=== PATIENT | male | born 1945 | race Caucasian/White ===

== ENCOUNTER 2016-11-25 10:33 | Day surgery (SDC) | payer OTHER ==
[2016-11-25] MEDS ORDERED: LR 1,000 ML IV ONE (11:20)
[2016-11-25] MEDS ORDERED: PROPOFOL 200 MG/20 ML VIAL ONE ×2 (11:59→12:35)
[2016-11-25] MEDS ORDERED: MIDAZOLAM 2 MG/2 ML VIAL ONE (12:14)
--- NOTE | 2016-11-30 14:32 | GPN ---
[f rep st] PROCEDURE NOTE DATE OF PROCEDURE: 11/25/2016 PROCEDURE: Colonoscopy with cold snare polypectomy. INDICATIONS: Personal history of colon polyps. PREOPERATIVE DIAGNOSIS: Rule out colon polyps, rule out colon cancer. POSTOPERATIVE DIAGNOSIS: Six polyps removed in total. There was a cecal polyp removed, 3 polyps in the hepatic flexure, 1 polyp in the transverse colon, and 1 polyp in the sigmoid colon. INFORMED CONSENT: I had a detailed discussion with the patient regarding the procedure, alternatives , benefits, and risks, including bleeding, perforation, infection, risk of medication. Informed cons ent was signed and witnessed. COMPLICATIONS: None immediate. MEDICATIONS USED: MAC. DESCRIPTION OF PROCEDURE: The patient was placed in the left lateral decubitus position. After adeq uate sedation, a visual and digital anorectal examination was performed. The video colonoscope was i nserted via the rectum and advanced under direct visualization to the cecum, identified by the ileoce zoey valve, confluence of the taeniae, and the appendiceal orifice. There was a 9 mm sessile polyp in the cecum that was removed in total by cold snare. Upon withdrawal of the instrument, careful atten tion was paid to the mucosal detail. The prep was very good. There were additional polyps noted in the hepatic flexure, 3 of them measuring between 5 mm and 8 mm, all of them removed with cold snare. An additional polyp in the transverse colon measuring approximately 3 mm was removed by cold snare. An additional polyp in the sigmoid colon measuring 4 mm was removed in total by cold snare. The pat ient did also have left-sided diverticulosis. Retroflex examination was performed. The endoscope wa s unretroflexed and withdrawn, confirming the above findings. The patient tolerated the procedure, a nd was transferred to the recovery area in satisfactory condition. IMPRESSIONS: 1. Six polyps as noted above, removed in total by cold snare. 2. Left-sided diverticulosis. 3. Otherwise normal exam. RECOMMENDATIONS: 1. Follow up pathology of all polyps. 2. Repeat colonoscopy in 3 years pending pathology. 3. High-fiber, high fluid diet. There is no need to avoid seeds and nuts with diverticulosis. 4. Continue current medications. 5. Except as used as cardiac or stroke prevention, try to avoid aspirin and nonsteroidal anti-inflam matory drugs for the next week to 10 days. 6. Follow up with PCP as scheduled. Thank you for allowing me to participate in this patient's healthcare. Do not hesitate to call me wi th any questions. /[id number]/MODL
== END 2016-11-25 14:10 | disposition home or self-care (01) ==
LOC: FSGY 10:33
PROVIDERS: ATTEND Internal Medicine Gastroenterology
PROC: 0DBL8ZX Excision of Transverse Colon, Via Natural or Artificial Opening Endoscopic, Diagnostic (ICD-10-PCS; 2016-11-25)
PROC: 0DBN8ZX Excision of Sigmoid Colon, Via Natural or Artificial Opening Endoscopic, Diagnostic (ICD-10-PCS; 2016-11-25)
PROC: 0DBF8ZX Excision of Right Large Intestine, Via Natural or Artificial Opening Endoscopic, Diagnostic (ICD-10-PCS; 2016-11-25)
PROC: 0DBH8ZX Excision of Cecum, Via Natural or Artificial Opening Endoscopic, Diagnostic (ICD-10-PCS; principal; 2016-11-25 12:15)
DX: D12.6 Benign neoplasm of colon, unspecified (principal); K63.5 Polyp of colon; K59.00 Constipation, unspecified; Z86.010 Personal history of colon polyps; K57.30 Diverticulosis of large intestine without perforation or abscess without bleeding; G89.4 Chronic pain syndrome; G47.00 Insomnia, unspecified; G47.33 Obstructive sleep apnea (adult) (pediatric); I10 Essential (primary) hypertension; N40.0 Benign prostatic hyperplasia without lower urinary tract symptoms; M10.9 Gout, unspecified; N28.9 Disorder of kidney and ureter, unspecified; Z88.0 Allergy status to penicillin
CPT/HCPCS: J2250; J2704

== ENCOUNTER → 2016-12-18 | Outpatient (CLI) | payer OTHER ==
--- NOTE | 2016-12-18 14:17 | DX ---
Cervical Spine, Four Views, Including Bending Views. 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 Evalu ate for instability. Comparison: MRI October 2016. Findings: Postsurgical changes are seen of laminectomy C4-C7. Soft tissue calcifications seen posteri or to the laminectomy site at the level of C5. Postsurgical changes are seen of anterior fusion of th e vertebral bodies of C4 and C5 with an anterior fixation plate and vertebral body screws and interbo dy bone graft. Multilevel facet arthropathy is present and mild uncovertebral joint hypertrophy and s purring. There is 2 mm retrolisthesis of C3 on C4 in extension which reduces to 0 in flexion. No othe r significant spondylolisthesis. Vascular calcifications are seen in the region of the carotids bilat erally. Impression: Postsurgical changes cervical spine as above. Multilevel degenerative disk and degenerati ve joint disease cervical spine. 2 mm retrolisthesis of C3 on C4 in extension which reduces to 0 in f lexion.
== END ==
LOC: FIMAGING 11:59
PROVIDERS: ATTEND Physician Assistant Surgical
DX: Z48.89 Encounter for other specified surgical aftercare (principal)

== ENCOUNTER → 2017-11-03 | Outpatient (CLI) | payer OTHER ==
[~2017-11-03] MED LIST: GADOBUTROL 10 ML VIAL IVP ONE
== END ==
LOC: FIMAGING 18:14
PROVIDERS: ATTEND Physician Assistant Surgical
DX: S13.130A Subluxation of C2/C3 cervical vertebrae, initial encounter (principal); M41.83 Other forms of scoliosis, cervicothoracic region; C72.0 Malignant neoplasm of spinal cord; Z98.1 Arthrodesis status
CPT/HCPCS: 70553; 72050; 72156; A9585

== ENCOUNTER 2017-11-17 04:57 | Observation (INO) | payer OTHER ==
--- NOTE | 2017-11-17 04:59 | EDPHY ---
H & P HPI/ROS: HPI CHIEF COMPLAINT: Shortness of breath HISTORY OF PRESENT ILLNESS: Patient is a 72-year-old male, he presents to the emergency room by private vehicle with shortness of breath. Patient reports for the past 24 hr he has had progression early worsening shortness of breath. Describes sensation of fullness in his throat and unable to take a breath through his throat. He denies any lung pain or chest pain he denies shortness of breath in his lower chest he is mainly complaining of feeling as his throat is full and he can't swallow well he has a change in phonation, and feels like he can't get air through his upper airway. Upon arrival to the emergency room is stable vital signs however when he has come to take a deep breath in he does have inspiratory stridor. No expiratory stridor. Lungs are clear bilaterally. He does state that he has lost his voice or his sounds different. He denies having a fever. Denies chest pain, does have a recent cough, has had a runny nose in the morning, the symptoms started approximately 12-24 hours ago however got worse tonight. States he felt anxious like he could not get air through his upper airway decided come the emergency room by private vehicle. He is able to swallow. He does have pain when he swallows. Past Medical History: Chronic back pain, hypertension, hyperlipidemia, diabetes , urinary retention, obstructive sleep apnea, meningioma resection Past Surgical History: Meningioma resection Social History: Denies daily use drugs alcohol tobacco products Family History: Noncontributory. ROS REVIEW OF SYSTEMS: A comprehensive 10 point review of systems is otherwise negative aside from elements mentioned in the history of present illness. Exam Constitutional appears nontoxic, triage nursing summary reviewed, vital signs reviewed, awake/alert. Eyes normal conjunctivae and sclera, EOMI, PERRLA. HENT posterior pharynx is mildly erythematous no significant exudate or swelling, uvula midline, phonation does sound different according to the patient , able swallow not drooling, no trismus, no signs of Tian's, normal inspection , atraumatic, moist mucus membranes, no epistaxis, neck supple/ no meningismus, no raccoon eyes. Respiratory with deep inspiration is inspiratory stridor, otherwise his lungs are clear to auscultation bilaterally, normal breath sounds, no respiratory distress, no wheezing. Cardiovascular rate normal, regular rhythm, no murmur, no edema, distal pulses normal. Gastrointestinal soft, non-tender, no rebound, no guarding, normal bowel sounds, no distension, no pulsatile mass. Genitourinary no CVA tenderness. Musculoskeletal no midline vertebral tenderness, full range of motion, no calf swelling, no tenderness of extremities, no meningismus, good pulses, neurovascularly intact. Skin pink, warm, & dry, no rash, skin atraumatic. Neurologic awake, alert and oriented x 3, AAOx3, moves all 4 extremities equally, motor intact, sensory intact, CN II-XII intact, normal cerebellar, normal vision, normal speech. Psychiatric normal mood/affect. Heme/Lymph/Immune no lymphadenopathy. Differential Diagnosis: Includes but is not limited to in a particular order viral syndrome, upper respiratory tract infection, RPA, CLIENT ACCOUNT MANAGER, epiglottitis, tracheitis, croup, pneumonia Medical Decision Making: Plan for this patient full radiographer cardiac catheterization IV establishment, 10 mg IV Decadron, IV fluid bolus, i-STAT creatinine, will proceed with CT soft tissue neck with IV contrast to help delineate this upper airway stridor inspiratory with forceful inspiration as well as trouble breathing. May need to give antibiotics empirically for possible a epiglottitis. Re-evaluation: EKG interpretation by me on record in [facility] system. Impression time of EKG 5:11 a.m., sinus rhythm rate of 60 first-degree AV block present AK interval 232. Right bundle-branch block present. Otherwise no acute ischemic change. 0619: Re-examination at this time this patient is feeling better after Decadron and racemic epinephrine neb. This CT scan soft tissue with IV contrast rule out epiglottitis or retropharyngeal abscess chest is unremarkable as does not show any signs of acute inflammation in the neck. This was called to me by Dr. Carcamo. Patient still has some upper airways noise and still feels short of breath. Given his comorbidities, age, morbid obesity am going to keep him in the hospital today for further pulmonary care and observation. ED x-ray chest one view: Negative for acute cardiopulmonary disease. No focal pneumonia. Cardiomegaly present 0625AM: Re-examination at this time patient be admitted to the hospitalist service for shortness of breath. Intermittent upper airway stridor. He is not impending airway compromise and appears well at this time. The racemic epinephrine and Decadron really helped him. Will plan for observation Admit to the hospalist service. Spoke with Dr. De La Rosa For Admission. 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), lumbar surgery, right knee surgery, bilateral hip replacements, cellulitis, brain and spinal cord tumor - Social History Smoking Status: Never smoked Constitutional: Initial Vital Signs Temperature (C) 36.5 C 11/17/17 05:00 Heart Rate 69 11/17/17 05:00 Respiratory Rate 20 11/17/17 05:00 Blood Pressure 139/81 H 11/17/17 05:00 O2 Sat (%) 92 11/17/17 05:00 O2 Delivery Mode Room Air Allergies/Adverse Reactions: Penicillins Allergy (Intermediate, Verified 11/17/17 05:18) HANDS SWELLING AND ITCH/FACE SWELLING Home Medications: Medication Instructions Recorded Multivitamins [Multivitamin (*)] 1 each PO DAILY 02/15/13 Pregabalin [Lyrica 75mg (*)] 300 mg PO HS 07/02/16 Tamsulosin HCl [Flomax 0.4 MG (*)] 0.4 mg PO DAILY #30 cap 07/03/16 Lisinopril [Zestril 20 mg (*)] 20 mg PO DAILY #30 tab 07/09/16 Levothyroxine [Synthroid 150 mcg 150 mcg PO DAILY06 11/17/17 (*)] [place]-3 Fatty Acids [Fish Oil 1000 1,000 mg PO DAILY 11/17/17 mg (*)] Zolpidem Tartrate [Ambien 5MG (*)] 10 mg PO HS 11/17/17 amLODIPine BESYLATE [Norvasc 10 mg 10 mg PO DAILY 11/17/17 (*)] clonazePAM [klonoPIN (*)] 1 mg PO BID 11/17/17 clonazePAM [klonoPIN (*)] 1 mg PO DAILY@12 PRN 11/17/17 tiZANidine HCL [Zanaflex] 4 mg PO TID PRN 11/17/17 Medical Decision Making - Data Points Laboratory Results: Laboratory Results 11/17/17 05:17 11/17/17 05:17 Microbiology Results: MICROBIOLOGY 11/17/17 05:30 Nasal, Sinus - Aspirate Respiratory Panel (PCR) - Final No Organism Detected Medications Given: Albuterol (Proventil Neb) 3 ml IH Q2HRS PRN PRN Reason: Short of Breath/Dyspnea Stop: 05/16/18 06:27 Last Admin: 11/17/17 15:37 Dose: 3 ml Amlodipine Besylate (Norvasc) 10 mg PO DAILY DARRELL Stop: 05/16/18 10:29 Last Admin: 11/17/17 11:09 Dose: 10 mg Clonazepam (Klonopin) 1 mg PO BID DARRELL Stop: 05/16/18 10:29 Last Admin: 11/17/17 20:42 Dose: 1 mg Dexamethasone (Decadron) 4 mg PO Q6HRS DARRELL Stop: 05/16/18 11:59 Last Admin: 11/17/17 17:23 Dose: 4 mg Levothyroxine Sodium (Synthroid) 150 mcg PO DAILY06 DARRELL Stop: 05/16/18 10:29 Last Admin: 11/17/17 11:00 Dose: 150 mcg Multivitamins (Tab-A-Vinnie) 1 each PO DAILY DARRELL Stop: 05/16/18 10:29 Last Admin: 11/17/17 11:09 Dose: 1 each Uvret-8-Uehj Ethyl Esters (Fish Oil) 1,000 mg PO DAILY DARRELL Stop: 05/16/18 10:29 Last Admin: 11/17/17 11:09 Dose: 1,000 mg Polyethylene Glycol (Miralax) 17 gm PO DAILY DARRELL Stop: 05/16/18 13:44 Last Admin: 11/17/17 14:43 Dose: 17 gm Pregabalin (Lyrica) 300 mg PO HS DARRELL Stop: 05/16/18 20:59 Last Admin: 11/17/17 20:42 Dose: 300 mg Tamsulosin HCl (Flomax) 0.4 mg PO DAILY DARRELL Stop: 05/16/18 10:29 Last Admin: 11/17/17 11:09 Dose: 0.4 mg Discontinued Medications Dexamethasone (Decadron Injection) 10 mg IVP EDNOW ONE Stop: 11/17/17 05:11 Last Admin: 11/17/17 05:16 Dose: 10 mg Epinephrine (S-2) 0.5 ml IH EDNOW ONE Stop: 11/17/17 05:11 Last Admin: 11/17/17 05:16 Dose: 0.5 ml Sodium Chloride (Ns) 1,000 mls @ 0 mls/hr IV EDNOW ONE; Wide Open PRN Reason: Protocol Stop: 11/17/17 05:10 Last Admin: 11/17/17 05:16 Dose: 1,000 mls Lisinopril (Zestril) 20 mg PO DAILY [facility]ENDING S[facility] TO [facility] Stop: 05/16/18 10:29 Last Admin: 11/17/17 11:09 Dose: 20 mg Departure - Departure Disposition: [facility] Acute Clinical Impression: Shortness of breath, Viral syndrome Condition: Good
[2017-11-17] MEDS ORDERED: NS 1,000 ML IV ONE (05:09)
[2017-11-17] MEDS ORDERED: DEXAMETHASONE 10 MG/ML VIAL IVP ONE (05:10)
[2017-11-17] MEDS ORDERED: EPINEPHrine RACEMIC INH 0.5 ML DEYVIAL IH ONE (05:10)
--- NOTE | 2017-11-17 05:12 | CPEKG ---
Heart Rate: 60 RR Interval: 1000 P-R Interval: 232 QRSD Interval: 170 QT Interval: 452 QTC Interval: 452 P [place]: 52 QRS [place]: 68 T Wave [place]: 21 EKG Severity - ABNORMAL ECG - EKG Impression: SINUS RHYTHM EKG Impression: FIRST DEGREE AV BLOCK EKG Impression: RIGHT BUNDLE BRANCH BLOCK Electronically Signed By: Bob Payton 18-Nov-2017 11:43:55
[2017-11-17] MEDS ORDERED: IOPAMIDOL (ISOVUE-300) 100 ML BTL ONE (05:22)
[2017-11-17 05:27] LABS: PLATELET COUNT 159 10^3/uL (150-400)
[2017-11-17 05:37] LABS: INR 0.98 (0.83-1.16); PROTIME(PATIENT) 13.2 SEC (12.0-15.0)
[2017-11-17 05:38] LABS: CREATINE KINASE 93 IU/L (0-224)
[2017-11-17] MEDS ORDERED: ONDANSETRON DISINTEGRATING 4 MG TAB PO PRN (06:28)
[2017-11-17] MEDS ORDERED: ONDANSETRON 4 MG/2 ML VIAL IVP PRN (06:28)
[2017-11-17] MEDS ORDERED: ACETAMINOPHEN 325 MG TAB PO PRN (06:28)
[2017-11-17] MEDS ORDERED: ALBUTEROL 3 ML DEYVIAL IH PRN (06:28)
[2017-11-17] MEDS ORDERED: EPINEPHrine RACEMIC INH 0.5 ML DEYVIAL IH PRN (06:49)
--- NOTE | 2017-11-17 06:50 | PDGENHP ---
History and Physical - Chief Complaint Shortness of breath - History of Present Illness 72 yo M w/ HTN, hypothyroid, multiple spinal surgeries presents with shortness of breath. Patient reports first feeling a sore throat yesterday. Then in the middle of the night he woke up with the sensation that he was having difficulty drawing air in. He came to the ED and was noted to be displaying stridor. Of note, his brother (who he lives with) has had cold symptoms for the past week. In the ED CT neck was unremarkable. Patient was treated with racemic epinephrine and steroids with some improvement in symptoms. He is being admitted for symptomatic treatment and further work-up. History Information - Allergies/Home Medication List Allergies/Adverse Reactions: Penicillins Allergy (Intermediate, Verified 11/17/17 05:18) HANDS SWELLING AND ITCH/FACE SWELLING Home Medications: Multivitamins [Multivitamin (*)] 1 each PO DAILY 02/15/13 [Last Taken 06/03/16] amLODIPine BESYLATE [Norvasc 5 mg (*)] 10 mg PO DAILY 04/03/15 [Last Taken 06/11 03:00] Pregabalin [Lyrica 75mg (*)] 300 mg PO DAILY 07/02/16 [Last Taken 11/25/16] I have personally reviewed and updated: family history, medical history - Past Medical History hypertension Additional medical history: Hypothyroid - Surgical History Reports: spinal surgery - Family History Additional family history: Brother has COPD - Social History Smoking Status: Never smoked Review of Systems Review of Systems: ROS: 10pt was reviewed & negative except for what was stated in HPI & below Physical Exam Physical Exam: Temp Pulse Resp BP Pulse Ox 36.5 C 66 18 121/43 H 93 11/17/17 05:00 11/17/17 06:00 11/17/17 06:00 11/17/17 06:00 11/17/17 06:00 Constitutional: not in pain, uncomfortable Eyes: PERRL, EOMI Ears, Nose, Mouth, Throat: moist mucous membranes, no oral mucosal ulcers Cardiovascular: regular rate and rhythym, systolic murmur Respiratory: other (Mild inspiratory stridor noted), No expiratory wheeze Gastrointestinal: normoactive bowel sounds, soft, non-tender abdomen Skin: warm, normal color Neurologic: AAOx3, CN II-XII Intact Psychiatric: interacting appropriately, not anxious Lab Data & Imaging Review 11/17/17 05:17 11/17/17 05:17 WBC 5.01 10^3/uL (3.80-9.50) 11/17/17 05:17 RBC 5.34 10^6/uL (4.40-6.38) 11/17/17 05:17 Hgb 15.4 g/dL (13.7-17.5) 11/17/17 05:17 POC Hgb 16.3 gm/dL (13.7-17.5) 11/17/17 05:11 Hct 47.2 % (40.0-51.0) 11/17/17 05:17 POC Hct 48 % (40-51) 11/17/17 05:11 MCV 88.4 fL (81.5-99.8) 11/17/17 05:17 MCH 28.8 pg (27.9-34.1) 11/17/17 05:17 MCHC 32.6 g/dL (32.4-36.7) 11/17/17 05:17 RDW 13.0 % (11.5-15.2) 11/17/17 05:17 Plt Count 159 10^3/uL (150-400) 11/17/17 05:17 MPV 10.6 fL (8.7-11.7) 11/17/17 05:17 Neut % (Auto) 48.5 % (39.3-74.2) 11/17/17 05:17 Lymph % (Auto) 36.7 % (15.0-45.0) 11/17/17 05:17 [place] % (Auto) 10.2 % (4.5-13.0) 11/17/17 05:17 Eos % (Auto) 3.4 % (0.6-7.6) 11/17/17 05:17 Baso % (Auto) 1.0 % (0.3-1.7) 11/17/17 05:17 Nucleat RBC Rel Count 0.0 % (0.0-0.2) 11/17/17 05:17 Absolute Neuts (auto) 2.43 10^3/uL (1.70-6.50) 11/17/17 05:17 Absolute Lymphs (auto) 1.84 10^3/uL (1.00-3.00) 11/17/17 05:17 Absolute Monos (auto) 0.51 10^3/uL (0.30-0.80) 11/17/17 05:17 Absolute Eos (auto) 0.17 10^3/uL (0.03-0.40) 11/17/17 05:17 Absolute Basos (auto) 0.05 10^3/uL (0.02-0.10) 11/17/17 05:17 Absolute Nucleated RBC 0.00 10^3/uL (0-0.01) 11/17/17 05:17 Immature Gran % 0.2 % (0.0-1.1) 11/17/17 05:17 Immature Gran # 0.01 10^3/uL (0.00-0.10) 11/17/17 05:17 PT 13.2 SEC (12.0-15.0) 11/17/17 05:17 INR 0.98 (0.83-1.16) 11/17/17 05:17 APTT 27.5 SEC (23.0-38.0) 11/17/17 05:17 VBG Lactic Acid 1.2 mmol/L (0.7-2.1) 11/17/17 05:17 POC Sodium 142 mEq/L (134-144) 11/17/17 05:11 Sodium 144 mEq/L (134-144) 11/17/17 05:17 POC Potassium 4.2 mEq/L (3.3-5.0) 11/17/17 05:11 Potassium 4.5 mEq/L (3.5-5.2) 11/17/17 05:17 POC Chloride 103 mEq/L (97-110) 11/17/17 05:11 Chloride 103 mEq/L (97-110) 11/17/17 05:17 Carbon Dioxide 28 mEq/l (22-31) 11/17/17 05:17 Anion Gap 13 mEq/L (8-16) 11/17/17 05:17 POC BUN 28 mg/dL (7-23) H 11/17/17 05:11 BUN 27 mg/dL (7-23) H 11/17/17 05:17 Creatinine 1.3 mg/dL (0.7-1.3) 11/17/17 05:17 POC Creatinine 1.4 mg/dL (0.7-1.3) H 11/17/17 05:11 Estimated GFR 54 11/17/17 05:17 Glucose 107 mg/dL (70-100) H 11/17/17 05:17 POC Glucose 112 mg/dL (70-100) H 11/17/17 05:11 Calcium 9.1 mg/dL (8.5-10.4) 11/17/17 05:17 Magnesium 2.0 mg/dL (1.6-2.3) 11/17/17 05:17 Total Bilirubin 1.1 mg/dL (0.1-1.4) 11/17/17 05:17 Conjugated Bilirubin 0.3 mg/dL (0.0-0.5) 11/17/17 05:17 Unconjugated Bilirubin 0.8 mg/dL (0.0-1.1) 11/17/17 05:17 AST 23 IU/L (17-59) 11/17/17 05:17 ALT 37 IU/L (21-72) 11/17/17 05:17 Alkaline Phosphatase 81 IU/L (38-126) 11/17/17 05:17 Creatine Kinase 93 IU/L (0-224) 11/17/17 05:17 CK-MB (CK-2) Fraction 3.26 ng/mL (0.00-3.19) H 11/17/17 05:17 CK-MB (CK-2) % 3.5 % (0.0-4.0) 11/17/17 05:17 Creatine Kinase Interp NEGATIVE (NEGATIVE) 11/17/17 05:17 Troponin I < 0.012 ng/mL (0.000-0.034) 11/17/17 05:17 NT-Pro-B Natriuret Pep 33 pg/mL (0-125) 11/17/17 05:17 Total Protein 7.2 g/dL (6.3-8.2) 11/17/17 05:17 Albumin 4.3 g/dL (3.5-5.0) 11/17/17 05:17 Group A Strep Screen NEGATIVE (NEGATIVE) 11/17/17 05:10 Imaging Review: CT neck reported as normal, final report pending. Assessment & Plan Assessment: 72 yo M w/ HTN, hypothyroid, multiple spinal surgeries presents with stridor likely 2/2 viral illness. Plan: 1. Shortness of breath - With prominent stridor noted on exam, although significantly improved after steroids and racemic epinephrine in the ED. CT of his neck reported as normal although final report pending. Noting preceding sore throat and positive sick contact, this is most likely due to a viral illness. Patient on room air and speaking in full sentences presently. - Admit to PCU for observation - Strep, respiratory PCR, blood cultures ordered - Racemic epinephrine and albuterol PRN - S/p dexamethasone 10 mg IV x1, will continue 4 mg PO q6h until stridor resolves 2. HTN - On lisinopril and amlodipine as outpatient 3. Hypothyroid - Continue LTX 4. Hx of multiple spinal surgeries - No longer taking opiates regularly, says he will take once every few weeks. Diet - Regular Code - Full Ppx - SCDs Dispo - Admit to observation status
[2017-11-17] MEDS ORDERED: LISINOPRIL 20 MG TAB PO SCH (10:30)
[2017-11-17] MEDS: DEXAMETHASONE 4 MG TAB PO SCH ×3 (11:00→23:14)
[2017-11-17] MEDS: LEVOTHYROXINE 150 MCG TAB PO SCH (11:00)
[2017-11-17] MEDS: TAMSULOSIN HCL 0.4 MG CAP PO SCH (11:09)
[2017-11-17] MEDS: clonazePAM 1 MG TAB PO SCH ×2 (11:09→20:42)
[2017-11-17] MEDS: MULTIVITAMINS 1 EACH TAB PO SCH (11:09)
[2017-11-17] MEDS: OMEGA-3 FATTY ACIDS 1,000 MG CAP PO SCH (11:09)
[2017-11-17] MEDS ORDERED: clonazePAM 1 MG TAB PO PRN (12:00)
--- NOTE | 2017-11-17 13:52 | ASMTCMCOM ---
CM Note CM Note Notes: Chart reviewed. Met with patient who is up in chair. Currently lives with brother. Has complex medical history but generally able to meet all adls independently. He tell me he does have a spinal tumor that has impacted his ROM. No therapies ordered as of yet. No anticipated needs at this time. CM available to follow. Date Signed: 11/17/2017 01:52 PM Electronically Signed By:Carmencita Retana RN
[2017-11-17] MEDS: POLYETHYLENE GLYCOL 3350 17 GM PKT PO SCH (14:43)
--- NOTE | 2017-11-17 16:01 | HOSPPROG ---
Hospitalist Progress Note Assessment/Plan: HOSPITALIST EVENING ROUNDS NOTE The patient is feeling notably better at this point without stridor or dyspnea. Reviewing his case he has had an episode of significant respiratory distress with audible stridor a sensation of swelling of his lips gums and tongue, with some mild pain in the throat. There has been no fever. He has never had an episode like this before and has no history of any type of allergic reaction of any significance. He does not get hayfever and does not have asthma. His concern is that he has a history of a cervical surgery for some type of tumor is worried that there is a muscular spasm there. Certainly he had with his dyspnea some significant panic and it is possible that this could have been panic episode with laryngeal spasm. However the patient did have observed soft tissue edema in the ER as he presented with audible stridor, and did himself have a at home when his symptoms were more severe a sensation of swelling of the tongue. He does take lisinopril from approximately the past 12 months. I would be concerned about a lisinopril induced angioedema episode and will stop his lisinopril and a recommending he go home without and follow up for blood pressure control with Dr. Payton. Due to the severity of his respiratory distress at onset of symptoms, along with his obesity and comorbidities I would continue to observe him here in the hospital overnight and will continue treating him during that period of time. If he is doing well in the morning can probably discharge him then. Objective: Vital Signs Temp Pulse Resp BP Pulse Ox 36.7 C 80 14 135/71 H 94 11/17/17 07:47 11/17/17 15:39 11/17/17 15:39 11/17/17 07:47 11/17/17 15:39 11/16/17 11/17/17 11/18/17 06:59 06:59 06:59 Intake Total 1000 Balance 1000 PT 13.2 SEC (12.0-15.0) 11/17/17 05:17 INR 0.98 (0.83-1.16) 11/17/17 05:17 ICD10 Worksheet Patient Problems: Problems Problem Status Onset Shortness of breath Acute Viral syndrome Acute Altered mental status Acute At risk for falling Acute MRSA (methicillin resistant Staphylococcus aureus) Acute 08/29/15 Medication overdose Acute Obesity Acute Sepsis Acute Spinal cord injury Acute Status post arthrodesis Acute Urinary tract infection Acute
[2017-11-17] MEDS ORDERED: PREGABALIN 75 MG CAP PO SCH (21:00)
[2017-11-17] MEDS ORDERED: ZOLPIDEM TARTRATE 5 MG TAB PO SCH (21:00)
[2017-11-18 04:51] LABS: PLATELET COUNT 159 10^3/uL (150-400)
[2017-11-18] MEDS: DEXAMETHASONE 4 MG TAB PO SCH ×2 (06:14→13:07)
[2017-11-18] MEDS: LEVOTHYROXINE 150 MCG TAB PO SCH (06:14)
[2017-11-18 07:43] VITALS: TEMP 98.5; O2SAT 95
[2017-11-18] MEDS: clonazePAM 1 MG TAB PO SCH (09:00)
[2017-11-18] MEDS: MULTIVITAMINS 1 EACH TAB PO SCH (09:00)
[2017-11-18] MEDS: OMEGA-3 FATTY ACIDS 1,000 MG CAP PO SCH (09:00)
[2017-11-18] MEDS: TAMSULOSIN HCL 0.4 MG CAP PO SCH (09:00)
[2017-11-18] MEDS: POLYETHYLENE GLYCOL 3350 17 GM PKT PO SCH (09:01)
[2017-11-18 11:57] VITALS: BP 125/55; PULSE 64; RESP 14
--- NOTE | 2017-11-18 15:21 | ASDISCHSUM ---
Discharge Information Plan Status:Home with No Needs Medically Cleared to Leave:11/17/2017 Discharge Date:11/18/2017 01:27 PM CM D/C Disposition: ADT D/C Disposition:Home, Routine, Self-Care Projected Discharge Date:11/18/2017 12:00 AM Transportation at D/C: Discharge Delay Reason: Follow-Up Date:11/18/2017 12:00 AM Discharge Slot: Final Diagnosis: Placement Information Patient Contact Information Contact Name:SHEILA Relationship: Address:[address] Work Phone: City:[facility] Phone: State/Zip Code:[place] [address] Email: Financial Information Financial Class: Primary Plan Desc:MEDICARE OUTPATIENT Primary Plan Number:[id number] Secondary Plan Desc:[facility] [employer] Secondary Plan Number:[id number] Assessment Information [facility] CM Progress Note CM Note CM Note Notes: Chart reviewed. Met with patient who is up in chair. Currently lives with brother. Has complex medical history but generally able to meet all adls independently. He tell me he does have a spinal tumor that has impacted his ROM. No therapies ordered as of yet. No anticipated needs at this time. CM available to follow. Date Signed: 11/17/2017 01:52 PM Electronically Signed By:Carmencita Retana RN Intervention Information Intervention Type:*CHUCK-Signed Date of Service:11/18/2017 11:40 AM Patient Type:Observation Staff Member:Natalie Rhodes Hours: Discipline: Severity: Comment:
--- NOTE | 2017-11-19 06:47 | GDS ---
[f rep st] DISCHARGE SUMMARY DIAGNOSES: 1. Acute respiratory distress with stridor. 2. Acute angioedema. 3. Possible medication side effect of lisinopril. PROCEDURES: CT scan of the neck soft tissues. HOSPITAL COURSE: The patient is a 72-year-old man who awakened during the night with severe shortnes s of breath, stridorous sounds in his throat, and a sense that he had swelling in his oral soft tissu es and throat. He had his brother bring him into the emergency room. By the time he arrived here, janet youssef was having improvement in symptoms but was still fairly short of breath. Examination did reveal so me soft tissue edema in the oropharynx in the emergency room. The patient was treated with steroids, bronchodilators, racemic epinephrine, and antihistamines in the ER with further improvement. CT sca n of the neck was done and revealed no particular abnormalities. There was no fever. There is no ev idence of hemorrhage or abscess. The patient was observed overnight in the hospital with ongoing sym ptomatic therapy and had no recurrence of his symptoms. His examination is normal at the time of dis charge, and he is not at all short of breath. The patient does take lisinopril for hypertension, and this had been prescribed approximately 1 year ago. This is his first ever episode of angioedema lik e symptoms. The patient is instructed that it is possible his symptoms are due to lisinopril, and he will stop taking that medicine and visit with Dr. Payton regarding a new antihypertensive therapy. He is also instructed that if he has further episodes while not taking the lisinopril, it could be du e to a food or other etiology, and he should seek care from an [facility]. Copy requested to: Dr. Payton /[id number]/MODL
== END 2017-11-18 13:27 | disposition home or self-care (01) ==
LOC: F2W 08:05
PROVIDERS: ADMIT Student in an Organized Health Care Education/Training Program; ATTEND Internal Medicine
DX: R06.03 Acute respiratory distress (principal); T78.3XXA Angioneurotic edema, initial encounter; I10 Essential (primary) hypertension; M54.9 Dorsalgia, unspecified; E66.01 Morbid (severe) obesity due to excess calories; Z68.41 Body mass index [BMI] 40.0-44.9, adult; E78.5 Hyperlipidemia, unspecified; E11.9 Type 2 diabetes mellitus without complications; G47.33 Obstructive sleep apnea (adult) (pediatric); Z96.643 Presence of artificial hip joint, bilateral; Z98.1 Arthrodesis status
CPT/HCPCS: 70491; 71010; 93005; 96361; 96374; 99285; G0378; J1100; Q9967; 82947-QW

== ENCOUNTER → 2018-05-24 | Outpatient (CLI) | payer OTHER | LOC: CIMAGING 09:06 | PROVIDERS: ATTEND Internal Medicine | DX: R22.1 Localized swelling, mass and lump, neck (principal); J44.9 Chronic obstructive pulmonary disease, unspecified; E66.9 Obesity, unspecified; M53.84 Other specified dorsopathies, thoracic region | CPT/HCPCS: 36415-PO; 71046-PO; G0103 ==

== ENCOUNTER → 2018-06-01 | Outpatient (CLI) | payer OTHER | LOC: CIMAGING 09:23 | PROVIDERS: ATTEND Internal Medicine | DX: R22.1 Localized swelling, mass and lump, neck (principal) | CPT/HCPCS: 71046-PO ==

== ENCOUNTER 2018-10-10 14:49 | Emergency (ER) | payer OTHER ==
--- NOTE | 2018-10-10 15:19 | EDPHY ---
HPI/HX/ROS/PE/MDM Narrative: CHIEF COMPLAINT: Unable to urinate, bilateral calf redness HPI: The patient is a 73 y/o male with a history of BPH, brain and C6 tumor, and chronic pain complaining of inability to urinate for 2 days. He tried drinking more water, but this only worsened his symptoms. As he has been unable to urinate, he is now having some abdominal pain. He is also complaining of swelling and redness of his calves. He states the redness has "been there for a long time, probably a year", but he noticed more inflammation and spreading of the redness around a month ago. He denies seeing his PCP for either complaint today. No headache, chest pain, shortness of breath , bowel complaints, numbness, paresthesias. REVIEW OF SYSTEMS: Aside from elements discussed in the HPI, a comprehensive 10 system review of systems is otherwise negative. PMH: BPH, chronic pain, hypertension, brain and C6 tumor, meningioma, right knee surgery, bilateral hip replacement SOCIAL HISTORY: Lives in [place], friend at bedside, retired PHYSICAL EXAM: General: Patient is alert, in no acute distress. Head: Normocephalic, atraumatic. ENT: Eyes are normal to inspection. ENT inspection normal. Neck: Normal inspection. Full range of motion. Respiratory: No respiratory distress. Breath sounds normal bilaterally. Cardiovascular: Regular rate and rhythm. Strong peripheral pulses. Normal cap refill. Abdomen: The abdomen is nontender to palpation. There are no peritoneal signs. There are normal bowel sounds. Back: Normal to inspection. No tenderness to palpation. Skin: Diffuse erythema to both calves; left calf has two areas of circular erythema with central clearing as well as a well-circumscribed erythema on the posterior of his calf. Neuro: Oriented x3. Normal motor function. Normal sensory function. ED Course: 1530: Patient's bladder scan reveals 500mL of urine in the bladder; a Abdi catheter will be placed. 155: Reassessed patient; he is feeling much better after the Abdi catheter. His labs are still pending. 1742: Reassessed patient and discussed laboratory findings. I have offered him admission to the hospital or the option of take home antibiotics for his bilateral lower leg cellulitis. He has requested to be discharged home. His vitals are okay, he is afebrile, and his WBC is normal. He will follow up with his PCP, Dr. Payton, within the next week. IV Vancomycin administered prior to discharge; I have prescribed him Keflex. Return precautions provided; patient is comfortable with this plan. MDM: This patient presents with two likely unrelated issues - 1. acute urinary retention, likely related to BPH, and 2. BLE cellulitis. The first was easily managed by Abdi placement, and there is no evidence for ARF. Regarding cellulitis, the patient certainly has concerning physical exam findings for cellulitis, and in particular, a very odd pattern to erythema with some circular features and strong demarcation. Confusingly, the patient states these findings have been present for quite some time however, and he is neither febrile nor does he have leukocytosis. I think he would benefit from admission to the hospital for further workup and treatment, but he is somewhat resistant to this and would like to go home. Given the previously stated lack of fever etc., I think this is risky, but somewhat reasonable. He will certainly require very close outpatient follow-up, and is at high-risk for return to the ED. He was instructed to follow-up with his PCP regarding both issues, and will keep catheter in place in the interim. - Data Points Laboratory Results: Laboratory Results 10/10/18 16:05 10/10/18 16:05 10/10/18 10/10/18 10/10/18 16:05 16:05 15:55 WBC 5.79 10^3/uL 10^3/uL (3.80-9.50) RBC 4.69 10^6/uL 10^6/uL (4.40-6.38) Hgb 13.7 g/dL g/dL (13.7-17.5) Hct 41.3 % % (40.0-51.0) MCV 88.1 fL fL (81.5-99.8) MCH 29.2 pg pg (27.9-34.1) MCHC 33.2 g/dL g/dL (32.4-36.7) RDW 13.4 % % (11.5-15.2) Plt Count 159 10^3/uL 10^3/uL (150-400) MPV 10.3 fL fL (8.7-11.7) Neut % (Auto) 59.1 % % (39.3-74.2) Lymph % (Auto) 29.2 % % (15.0-45.0) Curry % (Auto) 8.3 % % (4.5-13.0) Eos % (Auto) 2.2 % % (0.6-7.6) Baso % (Auto) 0.9 % % (0.3-1.7) Nucleat RBC Rel Count 0.0 % % (0.0-0.2) Absolute Neuts (auto) 3.42 10^3/uL 10^3/uL (1.70-6.50) Absolute Lymphs (auto) 1.69 10^3/uL 10^3/uL (1.00-3.00) Absolute Monos (auto) 0.48 10^3/uL 10^3/uL (0.30-0.80) Absolute Eos (auto) 0.13 10^3/uL 10^3/uL (0.03-0.40) Absolute Basos (auto) 0.05 10^3/uL 10^3/uL (0.02-0.10) Absolute Nucleated RBC 0.00 10^3/uL 10^3/uL (0-0.01) Immature Gran % 0.3 % % (0.0-1.1) Immature Gran # 0.02 10^3/uL 10^3/uL (0.00-0.10) Sodium 138 mEq/L mEq/L (135-145) Potassium 3.8 mEq/L mEq/L (3.3-5.0) Chloride 102 mEq/L mEq/L (97-110) Carbon Dioxide 26 mEq/l mEq/l (22-31) Anion Gap 10 mEq/L mEq/L (6-14) BUN 28 mg/dL H mg/dL (7-23) Creatinine 1.5 mg/dL H mg/dL (0.7-1.3) Estimated GFR 46 Glucose 78 mg/dL mg/dL (70-100) Calcium 8.4 mg/dL L mg/dL (8.5-10.4) Urine Color YELLOW Urine Appearance CLEAR Urine pH 5.0 (5.0-7.5) Ur Specific [place] 1.017 (1.002-1.030) Urine Protein NEGATIVE (NEGATIVE) Urine Ketones NEGATIVE (NEGATIVE) Urine Blood 2+ H (NEGATIVE) Urine Nitrate NEGATIVE (NEGATIVE) Urine Bilirubin NEGATIVE (NEGATIVE) Urine Urobilinogen NEGATIVE EU EU (0.2-1.0) Ur Leukocyte Esterase NEGATIVE (NEGATIVE) Urine RBC 50-182 /hpf H /hpf (0-3) Urine WBC 1-3 /hpf /hpf (0-3) Ur Epithelial Cells TRACE /lpf /lpf (NONE-1+) Hyaline Casts 5-15 /lpf /lpf (0-1) Urine Mucus TRACE /lpf /lpf (NONE-1+) Urine Glucose NEGATIVE (NEGATIVE) General Time Seen by Provider: 10/10/18 15:14 Initial Vital Signs: Initial Vital Signs Temperature (C) 36.5 C 10/10/18 14:59 Heart Rate 64 10/10/18 14:59 Respiratory Rate 16 10/10/18 14:59 Blood Pressure 125/57 H 10/10/18 14:59 O2 Sat (%) 90 L 10/10/18 14:59 O2 Delivery Mode Room Air Allergies/Adverse Reactions: Penicillins Allergy (Intermediate, Verified 11/17/17 05:18) HANDS SWELLING AND ITCH/FACE SWELLING Home Medications: Medication Instructions Recorded Multivitamins [Multivitamin (*)] 1 each PO DAILY 02/15/13 Pregabalin [Lyrica 75mg (*)] 300 mg PO HS 07/02/16 Tamsulosin HCl [Flomax 0.4 MG (*)] 0.4 mg PO DAILY #30 cap 07/03/16 Levothyroxine [Synthroid 150 mcg 150 mcg PO DAILY06 11/17/17 (*)] [place]-3 Fatty Acids [Fish Oil 1000 1,000 mg PO DAILY 11/17/17 mg (*)] Zolpidem Tartrate [Ambien 5MG (*)] 10 mg PO HS 11/17/17 amLODIPine BESYLATE [Norvasc 10 mg 10 mg PO DAILY 11/17/17 (*)] clonazePAM [klonoPIN (*)] 1 mg PO BID 11/17/17 clonazePAM [klonoPIN (*)] 1 mg PO DAILY@12 PRN 11/17/17 tiZANidine HCL [Zanaflex] 4 mg PO TID PRN 11/17/17 Polyethylene Glycol 3350 [Miralax 17 gm PO DAILY pkt 11/18/17 17 gm (*)] Cephalexin [Keflex] 500 mg PO Q6H #28 cap 10/10/18 Departure - Departure Disposition: Home, Routine, Self-Care Clinical Impression: Cellulitis, Urinary retention Condition: Good Instructions: Urinary Retention in Men (ED), Cellulitis (ED) Additional Instructions: Take Keflex as prescribed. Follow-up with your primary doctor within 72 hours. Return to the Emergency Department for fever, chest pain, shortness of breath, increasing pain or other worsening of condition. Referrals: Reji Payton MD [Primary Care Provider] - As per Instructions Prescriptions: Cephalexin [Keflex] 500 mg PO Q6H #28 cap Report Scribed for: Benitez Gupta Report Scribed by: Vicki Young Date of Report: 10/10/18 Time of Report: 15:19 Physician Review and Approval Statement: Portions of this note were transcribed by an ED scribe. I personally performed the history, physical exam, and medical decision making; and confirm the accuracy of the information in the transcribed note.
[2018-10-10] MEDS ORDERED: LIDOCAINE 2% JELLY 20 ML (UROJECT) ONE (15:21)
[2018-10-10 16:20] LABS: PLATELET COUNT 159 10^3/uL (150-400)
[2018-10-10] MEDS ORDERED: VANCOMYCIN HCL/NORMAL SALINE 250 ML IV ONE (17:29)
[2018-10-10 18:06] VITALS: BP 118/60
== END 2018-10-10 19:41 | disposition home or self-care (01) ==
PROC: 0T9B70Z Drainage of Bladder with Drainage Device, Via Natural or Artificial Opening (ICD-10-PCS; principal; 2018-10-10)
PROC: BT40ZZZ Ultrasonography of Bladder (ICD-10-PCS; principal; 2018-10-10)
DX: N40.1 Benign prostatic hyperplasia with lower urinary tract symptoms (principal); R33.9 Retention of urine, unspecified; L03.116 Cellulitis of left lower limb; L03.115 Cellulitis of right lower limb; Z86.011 Personal history of benign neoplasm of the brain; Z85.848 Personal history of malignant neoplasm of other parts of nervous tissue
CPT/HCPCS: 51702; 76775; 96365; 99285; J3370

== ENCOUNTER 2018-10-21 06:27 | Emergency (ER) | payer OTHER ==
[2018-10-21 06:34] VITALS: BP 134/91
--- NOTE | 2018-10-21 06:53 | EDPHY ---
H & P Stated Complaint: marinelli out 18 hours ago, has not urinated since, suprapubic pain Time Seen by Provider: 10/21/18 06:40 HPI/ROS: Chief Complaint: Not urinating HPI: 73 year old male with a history of BPH and a brain and C6 meningioma and a history of neurogenic bladder is presenting having no significant urination since yesterday morning. Patient states he had a Marinelli catheter removed at [facility] yesterday at 11:00 a.m.. They caught him how to self catheterization. At home he sat on the toilet and had some urine out and he did attempt to self catheterization once which produced some urine but he feels like he is not fully emptying his bladder. He does not have the urge to urinate. No abdominal pain. No nausea or vomiting. He is presenting this morning concerned that he is in urinary retention. No fevers or chills. No back pain. ROS: 10 systems were reviewed and were negative except those elements noted in the HPI. PMH: BPH, brain and the C6 meningioma Social History: No smoking, no alcohol, no recreational drug use Family History: non-contributory Physical Exam: Gen: Awake, Alert, No Distress HEENT: Nose: no rhinorrhea Eyes: PERRLA, EOMI Mouth: Moist mucosa Neck: Supple, no JVD Chest: nontender, lungs clear to auscultation Heart: S1, S2 normal, no murmur Abd: Soft, non-tender, no guarding, no palpable bladder, patient is obese Back: no CVA tenderness, no midline tenderness Ext: no edema, non-tender Skin: no rash Neuro: CN II-XII intact, Sensation grossly intact, Strength 5/5 in bilateral upper and lower extremities - Personal History Current Tetanus/Diphtheria Vaccine: Yes Current Tetanus Diphtheria and Acellular Pertussis (TDAP): Yes Tetanus Vaccine Date: <5 YRS - Medical/Surgical History Hx Asthma: No Hx Chronic Respiratory Disease: Yes Hx Diabetes: No Hx Cardiac Disease: No Hx Renal Disease: No Hx Cirrhosis: No Hx Alcoholism: No Hx HIV/AIDS: No Hx Splenectomy or Spleen Trauma: No Other PMH: HTN, Gout feet, BPH, Chronic pain, Thickening of wall of lung, hx of walking pneumonia, tumor at C6, meningioma (causes neuralgia in face), lumbar surgery, right knee surgery, bilateral hip replacements, cellulitis, brain and spinal cord tumor - Social History Smoking Status: Never smoked Constitutional: Initial Vital Signs Temperature (C) 36.2 C 10/21/18 06:28 Heart Rate 63 10/21/18 06:28 Respiratory Rate 20 10/21/18 06:28 Blood Pressure 134/91 H 10/21/18 06:28 O2 Sat (%) 92 10/21/18 06:28 O2 Delivery Mode Room Air Allergies/Adverse Reactions: Penicillins Allergy (Intermediate, Verified 10/21/18 06:28) HANDS SWELLING AND ITCH/FACE SWELLING Home Medications: Medication Instructions Recorded Multivitamins [Multivitamin (*)] 1 each PO DAILY 02/15/13 Pregabalin [Lyrica 75mg (*)] 300 mg PO HS 07/02/16 Tamsulosin HCl [Flomax 0.4 MG (*)] 0.4 mg PO DAILY #30 cap 07/03/16 Levothyroxine [Synthroid 150 mcg 150 mcg PO DAILY06 11/17/17 (*)] [place]-3 Fatty Acids [Fish Oil 1000 1,000 mg PO DAILY 11/17/17 mg (*)] Zolpidem Tartrate [Ambien 5MG (*)] 10 mg PO HS 11/17/17 amLODIPine BESYLATE [Norvasc 10 mg 10 mg PO DAILY 11/17/17 (*)] clonazePAM [klonoPIN (*)] 1 mg PO BID 11/17/17 clonazePAM [klonoPIN (*)] 1 mg PO DAILY@12 PRN 11/17/17 tiZANidine HCL [Zanaflex] 4 mg PO TID PRN 11/17/17 Polyethylene Glycol 3350 [Miralax 17 gm PO DAILY pkt 11/18/17 17 gm (*)] Cephalexin [Keflex] 500 mg PO Q6H #28 cap 10/10/18 Medical Decision Making ED Course/Re-evaluation: Multiple bedside bladder scans show a bladder containing only 100 mL of urine. Patient's abdomen is soft and benign. He does appear to be adequately emptying his bladder both with some urination and with self cathing. I do not think a Marinelli catheter is indicated at this time. Patient is comfortable and not in any distress. He is in agreement with this plan. She will continue to drink plenty of fluids today and self catheterization as instructed. If he continues to not have any urine output or starts developing some discomfort or any other symptoms he will follow up with his urologist or return to the emergency department. Departure - Departure Disposition: Home, Routine, Self-Care Clinical Impression: BPH (benign prostatic hyperplasia) Condition: Good Instructions: Enlarged Prostate (BPH) (ED) Additional Instructions: Drink plenty of fluids today. If you do not have any urine output either 3 urination or self catheterization follow-up with a urologist or return to the emergency department. Return to the emergency department for increasing abdominal pain, fevers or chills, nausea, vomiting, or any other concerns. Referrals: Reji Payton MD [Primary Care Provider] - As per Instructions
== END 2018-10-21 06:59 | disposition home or self-care (01) ==
DX: N40.1 Benign prostatic hyperplasia with lower urinary tract symptoms (principal); I10 Essential (primary) hypertension

== ENCOUNTER → 2018-10-25 | Outpatient (CLI) | payer OTHER ==
[~2018-10-25] MED LIST changes: -GADOBUTROL 10 ML VIAL IVP ONE; +IOPAMIDOL (ISOVUE-300) 150 ML BTL ONE
== END ==
LOC: FIMAGING 08:00
PROVIDERS: ATTEND Physician Assistant Medical
DX: N32.9 Bladder disorder, unspecified (principal); R59.0 Localized enlarged lymph nodes
CPT/HCPCS: 74178; Q9967

== ENCOUNTER 2019-02-21 05:34 | Observation (INO) | payer OTHER ==
--- NOTE | 2019-02-20 16:27 | GHP ---
[f rep st] PREOP HISTORY AND PHYSICAL SURGERY DATE: 02/21/2019. HISTORY: Dong is a 73-year-old male who presents with severe left knee osteoarthritis. He has tricompartment osteoarthritis with significant change radiographically. He has tried appropriate conservative measures and is significantly limited in his activities including activities of daily living at this point. He has limited motion, pain, swelling, alterations of his gait. He has had a successful total knee on the opposite side. He wishes to proceed with a left total knee arthroplasty. PAST MEDICAL HISTORY: Remarkable for an ependymoma, spinal. This significantly impacts his neurologic function of his extremities and produces a lot of muscle tone. He has had an L-spine fusion. He has had surgery at C5-6. ALLERGIES: Penicillin. MEDICATIONS: Include clonazepam, losartan, amlodipine, Synthroid, Xanax and Lyrica. SOCIAL HISTORY: He is a nonsmoker. REVIEW OF SYSTEMS: Negative for cardiopulmonary disease. PHYSICAL EXAM: GENERAL: Wilton is a well-developed, well-nourished male in no apparent distress. HEAD AND NECK: Normocephalic, atraumatic. CHEST: Clear. CARDIOVASCULAR: Regular rate and rhythm. ABDOMEN: Soft. NEUROLOGIC: He is alert and oriented x3. EXTREMITIES: Exam of the left knee shows a 10-degree flexion contracture. He flexes only to about 100 degrees. His sensation, perfusion and skin appear intact. X-rays as noted show significant left knee osteoarthritis. He is essentially [id number] in the medial compartment. There is degenerative lipping, subchondral sclerosis, joint space narrowing throughout. IMPRESSIONS: Left knee osteoarthritis. PLANS: Left total knee arthroplasty. Benefits and risks of surgery have been reviewed with Wilton. He understands that the risks include infection, damage to blood vessel or nerve, failure or loosening of the components and need for revision, bleeding and need for transfusion, blood clot in the leg or lungs. He understands well the rigorous nature of the rehabilitation. He has signed the consent form and wishes to proceed. /[id number]/MODL MTDD
[2019-02-21] MEDS ORDERED: DEXAMETHASONE 4 MG/ML VIAL IVP ONE (05:49)
[2019-02-21] MEDS ORDERED: ACETAMINOPHEN 325 MG TAB PO ONE (05:49)
[2019-02-21] MEDS ORDERED: FAMOTIDINE 20 MG TAB PO ONE (05:49)
[2019-02-21] MEDS ORDERED: ONDANSETRON 4 MG/2 ML VIAL IVP ONE (05:49)
[2019-02-21] MEDS ORDERED: ceFAZolin 2 GM/DEXTROSE 100 ML IV ONE (05:49)
[2019-02-21] MEDS ORDERED: GABAPENTIN 300 MG CAP PO ONE (05:49)
[2019-02-21] MEDS ORDERED: LR 1,000 ML IV ONE (05:53)
--- NOTE | 2019-02-21 06:49 | PDANEPAE ---
ANE Past Medical History - Cardiovascular History Hx Hypertension: Yes Hx Arrhythmias: No Hx Chest Pain: No Hx Coronary Artery / Peripheral Vascular Disease: No Hx CHF / Valvular Disease: No Hx Palpitations: No Cardiovascular History Comment: RBBB,1ST DEGREE AV BLOCK - Pulmonary History Hx COPD: No Hx Asthma/Reactive Airway Disease: No Hx Recent Upper Respiratory Infection: No Hx Oxygen in Use at Home: Yes O2 in Use at Home (L/minute): 2.L Hx Sleep Apnea: Yes Sleep Apnea Screening Result - Last Documented: Positive Pulmonary History Comment: MILD SLEEP APNEA DX 02/2012. + CPAP - Neurologic History Hx Cerebrovascular Accident: No Hx Seizures: No Hx Dementia: Yes Neurologic History Comment: MEMORY ISSUES RELATED TO AGE. 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 NOCTURIA - Liver History Hx Hepatic Disorders: No - Neurological & Psychiatric Hx Hx Neurological and Psychiatric Disorders: Yes Neurological / Psychiatric History Comment: PER PT SCALP MUSCLES SPASM. PINS AND NEEDLES TO ALL EXTREMITIES - Cancer History Hx Cancer: No - Congenital Disorder History Hx Congenital Disorders: No - GI History GERD: no Hx Gastrointestinal Disorders: No - Other Health History Other Health History: INSOMNIA. DJD. SPONDYLOSIS. PERIPHERAL NEUROPATHY LEG, ARMS,HANDS. INTERMITTENT EDEMA WEARS COMPRESSION STOCKINGS. GOUT DIET HIGH IN PROTEIN - Chronic Pain History Chronic Pain: Yes (TUMOR IN NECK) - Surgical History Prior Surgeries: RT KNEE REPLACEMENT 02/2013. LEXI TOTAL HIP. UMBILICAL HERNIA 01/2013. LUMBAR FUSION L4-5 (?L3/4) 2012&2007. CERVICAL LAMINECTOMY AND FUSION. MENINGIOMA REMVL FRONTAL LOBE CYBER KNIFE 2012. LT LEG VEIN STRIPPING 2011. LEXI CARPAL TUNNEL ANE Review of Systems Review of Systems: - Exercise capacity Exercise capacity: limited by disability METS (RN): 4 METS ANE Patient History - Allergies Allergies/Adverse Reactions: Penicillins Allergy (Intermediate, Verified 02/07/19 16:59) HANDS SWELLING AND ITCH/FACE SWELLING - Home Medications Home Medications: Multivitamins [Multivitamin (*)] 1 each PO DAILY 02/15/13 [Last Taken 3 Days Ago ~02/18/19] Levothyroxine [Synthroid 150 mcg (*)] 150 mcg PO DAILY06 11/17/17 [Last Taken ] [place]-3 Fatty Acids [Fish Oil 1000 mg (*)] 1,000 mg PO DAILY 11/17/17 [Last Taken 3 Days Ago ~02/18/19] amLODIPine BESYLATE [Norvasc 10 mg (*)] 10 mg PO DAILY 11/17/17 [Last Taken 12/11] clonazePAM [klonoPIN (*)] 1 mg PO TID PRN 11/17/17 [Last Taken 02/20/19] tiZANidine HCL [Zanaflex] 4 mg PO TID PRN 11/17/17 [Last Taken 02/20/19] ALPRAZolam [Xanax 1 MG (*)] 1 mg PO BID@21,02 02/03/19 [Last Taken Unknown] Losartan Potassium [Cozaar 50 mg (*)] 50 mg PO DAILY 02/03/19 [Last Taken ] Polyethylene Glycol 3350 [Miralax 17 gm (*)] 17 gm PO DAILY 02/03/19 [Last Taken Unknown] Pregabalin [Lyrica 150mg (*)] 300 mg PO DAILY 02/03/19 [Last Taken 02/20/19] - NPO status NPO Since - Liquids (Date): 02/20/19 NPO Since - Liquids (Time): 21:00 NPO Since - Solids (Date): 02/20/19 NPO Since - Solids (Time): 19:00 - Anes Hx Anes Hx: no prior problems - Smoking Hx Smoking Status: Never smoked Marijuana use: No - Alcohol Use Alcohol Use: Rarely - Family Anes Hx Family Anes Hx: neg - N/A Family Hx Anesthesia Complications: none ANE Labs/Vital Signs - Vital Signs Blood Pressure: 127/66 Heart Rate: 70 Respiratory Rate: 15 O2 Sat (%): 90 Height: 167.64 cm Weight: 124.738 kg ANE Physical Exam - Airway Neck exam: decreased ROM, spinal fusion Mallampati Score: Class 3 Mouth exam: normal dental/mouth exam - Pulmonary Pulmonary: no respiratory distress, no rales or rhonchi, clear to auscultation - Cardiovascular Cardiovascular: regular rate and rhythym - ASA Status ASA Status: III ANE Anesthesia Plan Anesthesia Plan: GA w LMA, spinal Regional Anesthesia: single shot NB, adductor canal FNB Total IV Anesthesia: No
[2019-02-21] MEDS ORDERED: ceFAZolin 1 GM/5 ML SYR ONE (06:54)
--- NOTE | 2019-02-21 07:20 | PDHPUP ---
History & Physical Update H&P update statement: This history and physical update is based on an assessment of the patient which was completed after admission or registration (within 24 hours), but prior to the surgery/procedure. no change H&P update: H&P reviewed & patient examined (no change)
[2019-02-21] MEDS ORDERED: PROPOFOL 200 MG/20 ML VIAL ONE (07:22)
[2019-02-21] MEDS ORDERED: fentaNYL 100 MCG/2 ML INJ ONE ×2 (07:22→10:12)
[2019-02-21] MEDS ORDERED: LIDOCAINE 2% 5 ML SDV ONE (07:47)
[2019-02-21] MEDS ORDERED: SUCCINYLCHOLINE CHLORIDE 200 MG/10 ML SYR IVP ONE ×2 (07:52→09:31)
[2019-02-21] MEDS ORDERED: TRANEXAMIC ACID 2,000 MG in NS 100 ML IV ONE (08:00)
[2019-02-21] MEDS ORDERED: TRANEXAMIC ACID 1,000 MG in NS 100 ML IV ONE (08:00)
[2019-02-21] MEDS ORDERED: ROPIVACAINE 0.2% 80 MG, EPINEPHrine 0.2 MG, KETOROLAC TROMETHAMINE 30 MG in SYRINGE 0 ML IU ONE (08:00)
[2019-02-21] MEDS ORDERED: POVIDONE-IODINE 20 ML in SODIUM CL IRRIG SOLUTION 500 ML IRR ONE (08:00)
[2019-02-21] MEDS ORDERED: ROPIVACAINE HCL 150 MG/30 ML INJ ONE (09:33)
[2019-02-21] MEDS ORDERED: oxyCODONE IR 5 MG TAB PO PRN ×2 (10:13→10:22)
[2019-02-21] MEDS ORDERED: ONDANSETRON DISINTEGRATING 4 MG TAB PO PRN (10:13)
[2019-02-21] MEDS ORDERED: PROMETHAZINE HCL 25 MG SUPPR PR PRN (10:13)
[2019-02-21] MEDS ORDERED: diphenhydrAMINE 25 MG CAP PO PRN (10:13)
[2019-02-21] MEDS ORDERED: POLYETHYLENE GLYCOL 3350 17 GM PKT PO PRN (10:13)
[2019-02-21] MEDS ORDERED: ONDANSETRON 4 MG/2 ML VIAL IVP PRN ×2 (10:13→10:22)
[2019-02-21] MEDS ORDERED: CYCLOBENZAPRINE 10 MG TAB PO PRN (10:13)
[2019-02-21] MEDS ORDERED: PROMETHAZINE HCL 25 MG/ML INJ IVP PRN ×2 (10:13→10:22)
[2019-02-21] MEDS ORDERED: LACTULOSE 20 GM/30 ML UDCUP PO PRN (10:13)
[2019-02-21] MEDS ORDERED: MAGNESIUM HYDROXIDE 30 ML UDCUP PO PRN (10:13)
[2019-02-21] MEDS ORDERED: METOCLOPRAMIDE 10 MG/2 ML VIAL IVP PRN (10:13)
[2019-02-21] MEDS ORDERED: DIPHENOXYLATE/ATROPINE LOMOTIL 1 TAB PO PRN (10:13)
[2019-02-21] MEDS ORDERED: TEMAZEPAM 15 MG CAP PO PRN (10:13)
[2019-02-21] MEDS ORDERED: KETOROLAC 15 MG/1 ML SDV IVP ONE (10:13)
[2019-02-21] MEDS ORDERED: BISACODYL 10 MG SUPP PR PRN (10:13)
[2019-02-21] MEDS: fentaNYL 100 MCG/2 ML INJ IVP PRN ×2 (10:14→10:27)
[2019-02-21] MEDS ORDERED: LR 500 ML IV PRN (10:22)
[2019-02-21] MEDS ORDERED: NALOXONE HCL 0.4 MG/ML INJ IVP PRN (10:22)
[2019-02-21] MEDS ORDERED: HYDROCODONE/APAP 5/325 TAB PO PRN (10:22)
[2019-02-21] MEDS ORDERED: PHENYLEPHRINE HCL 100 MCG/ML SYR IVP PRN (10:22)
[2019-02-21] MEDS ORDERED: ACETAMINOPHEN 500 MG TAB PO PRN (10:22)
--- NOTE | 2019-02-21 10:24 | POSTANESTH ---
Post Anesthetic Evaluation Cardiovascular Status: Normal, Stable Respiratory Status: Similar to Pre-op Cond. Level of Consciousness/Mental Status: Can Participate in Eval Pain Control: Adequate, Prn Tx Ordered Nausea/Vomiting Control: Adequate, Prn Tx Ordered Complications Possibly Related to Anesthesia: None Noted
[2019-02-21] MEDS ORDERED: LR 1,000 ML IV SCH (10:30)
[2019-02-21] MEDS ORDERED: KETOROLAC 15 MG/1 ML SDV ONE (10:36)
[2019-02-21] MEDS ORDERED: BUPIVACAINE/DEXTROSE 7.5MG/ML 2 ML SPINAL AMP SP ONE (10:56)
--- NOTE | 2019-02-21 11:19 | GOP ---
[f rep st] OPERATIVE REPORT DATE OF OPERATION: SURGEON: Mando Fiore MD [facility] TECH: RAVI Coombs LSA ANESTHESIOLOGIST: Scott Dumont DO PREOPERATIVE DIAGNOSIS: Left knee osteoarthritis. POSTOPERATIVE DIAGNOSIS: Left knee osteoarthritis. PROCEDURE PERFORMED: Left total knee arthroplasty. FINDINGS: SPECIMENS: Include excised bone. ESTIMATED BLOOD LOSS: About 100 cc. INDICATIONS: The patient is a 73-year-old male who presents with history, exam, and x-rays, all cons istent with severe end-stage left knee osteoarthritis,for which he has tried appropriate conservative measures. Left total knee is planned. DESCRIPTION OF PROCEDURE: The patient was taken to the operating room, and while seated on the OR ta ble, Dr. Dumont provided a spinal anesthetic. He was then placed supine and placed under genera l anesthetic with laryngeal mask ventilation. He received 2 g of IV Ancef. A Abdi catheter was benton ophelia as he does require straight cathing, but he self-caths on a regular basis. We will do an overnig ht Abdi. Tourniquet was fit high on the left thigh and the left leg was prepped and draped with chl orhexidine in the usual fashion. The limb was elevated, exsanguinated, tourniquet inflated to 300 mm Hg. I made a longitudinal incision in the midline. I dissected through subcutaneous tissue, identified t he extensor mechanism, used a medial parapatellar arthrotomy and the patella was inverted. I measure d its thickness, I removed 9 mm of cartilage and bone, and sized the patella to a 35 diameter compone nt. I drilled appropriate PEG holes. The trial component fit well. The patella was inverted. The knee was flexed. I drilled a forestry pilot hole in the distal femur. I used an intramedullary device on the femur, he has quite a bit of flexion contracture greater than 10 degrees, so I removed an extra 4 mm of bone in a 5-degree valgus cut. I sized the femur between a 7 and 8, downsized to a 7 and moved t he cutting block anteriorly to avoid notching, and I completed the anterior, posterior, and chamfer c uts, as well as the notch cuts for this bi-cruciate stabilized knee. I used an extramedullary device on the tibia. I dialed in my rotation, posterior slope, and appropriate depth of cut, made a perpen dicular tibial cut, and sized the tibial surface at a size 6. I did trial reductions and I dialed in the rotation and completed the tibial prep. All the components were removed. All the surfaces were jet lavaged, irrigated with antibiotic soluti on. Cement was applied to all the surfaces. The tibia size [address], a size 7 femu r likewise, and the patellar component was held with a clamp. After the cement hardened, I did trial reductions and found that a 10 mm insert was appropriate and used a 10 mm liner. The tourniquet was let down after 1 hour 30 minutes. I used antibiotic saline, as well as a Betadine rinse. I infiltrated the tissues with a joint cocktail. The arthrotomy was closed with interrupted [id number] sutures of 0 [place], subcutaneous tissue was closed in layers with 2-0 Monocryl, and the skin was closed with a running absorbable Quill suture in the subcuticular layer. I then glu ed the wound, placed Steri-Strips, 4 x 4, sterile Webril, and a long-leg ROCAEL stocking over that stock ing and then over that, an Erick wrap. There were no complications. DRAINS: None. COUNTS: All counts correct. DISPOSITION: The patient was taken in stable condition to recovery. My surgical corsetier was a [facility] necessity for leg positioning, soft tissue retraction. SUMMARY OF COMPONENTS: This is a [employer] knee. The femur is Oxinium. All componen ts are cemented. The polyethylene is cross-linked. It is bi cruciate stabilized. The femur is a si ze 7, the tibia a size 6, patella 35 diameter, and the articular insert is 10 mm thick. /[id number]/MODL
[2019-02-21] MEDS: ceFAZolin 2 GM/DEXTROSE 100 ML IV SCH ×2 (14:48→21:47)
[2019-02-21] MEDS: ACETAMINOPHEN 325 MG TAB PO SCH ×2 (17:18→21:33)
[2019-02-21] MEDS ORDERED: clonazePAM 1 MG TAB PO PRN (19:19)
[2019-02-21] MEDS: SENNOSIDES/DOCUSATE SODIUM TAB PO SCH (21:32)
[2019-02-21] MEDS: FAMOTIDINE 20 MG TAB PO SCH (21:34)
[2019-02-21] MEDS: ASPIRIN 81 MG CHEWABLE TAB PO SCH (21:34)
[2019-02-21] MEDS: PREGABALIN 150 MG CAP PO SCH (21:35)
[2019-02-21] MEDS: ALPRAZolam 1 MG TAB PO SCH (22:43)
[2019-02-22] MEDS: ALPRAZolam 1 MG TAB PO SCH (01:52)
[2019-02-22] MEDS: ACETAMINOPHEN 325 MG TAB PO SCH ×2 (05:22→11:34)
[2019-02-22] MEDS ORDERED: LEVOTHYROXINE 150 MCG TAB PO SCH (06:00)
--- NOTE | 2019-02-22 07:56 | SOAPPROG ---
SOAP Progress Note Assessment/Plan: Assessment: 02/22/19 POD#1 L TKA, xray fine, has been up Plan: 02/22/19 07:53 PT and home, oxy, celebrex,tyl, asa Objective: Vital Signs Temp Pulse Resp BP Pulse Ox 36.3 C 56 L 16 106/63 94 02/22/19 03:46 02/22/19 03:46 02/22/19 03:46 02/22/19 03:46 02/22/19 03:46 Laboratory Results 02/22/19 04:20 02/21/19 02/22/19 02/23/19 05:59 05:59 05:59 Intake Total 2985 Output Total 1375 Balance 1610 ICD10 Worksheet Patient Problems: Problems Problem Status Onset Altered mental status Acute At risk for falling Acute Fall Acute MRSA (methicillin resistant Staphylococcus aureus) Acute 08/29/15 Medication overdose Acute Obesity Acute Orbital wall fracture Acute Sepsis Acute Shortness of breath Acute Spinal cord injury Acute Status post arthrodesis Acute Urinary tract infection Acute Viral syndrome Acute
[2019-02-22] MEDS: ASPIRIN 81 MG CHEWABLE TAB PO SCH (08:21)
[2019-02-22] MEDS: PREGABALIN 150 MG CAP PO SCH (08:21)
[2019-02-22] MEDS: FAMOTIDINE 20 MG TAB PO SCH (08:21)
[2019-02-22] MEDS ORDERED: LOSARTAN POTASSIUM 50 MG TAB PO SCH (09:00)
[2019-02-22] MEDS ORDERED: TAMSULOSIN HCL 0.4 MG CAP PO SCH (09:00)
[2019-02-22] MEDS: SENNOSIDES/DOCUSATE SODIUM TAB PO SCH (09:37)
[2019-02-22 12:00] VITALS: BP 115/53
--- NOTE | 2019-02-22 13:46 | ASMTLACE ---
LACE Length of stay for Answers: 2 days current admission Acuity / Level of Answers: No Care: Did the patient have an inpatient admission? Comorbidities - select Answers: Any tumor (including all that apply lymphoma or leukemia) Opioid dependence / Chronic pain Other Notes: HTN; Hypothyroid # of Emergency department Answers: 3-4 visits in the last 6 months Score: 12 Date Signed: 02/22/2019 01:41 PM Electronically Signed By:RUTH Camargo
--- NOTE | 2019-02-22 13:48 | ASMTCMCOM ---
CM Note CM Note Notes: Pt had planned OA of knee. PT/OT rec home care. Pt declines [facility], reports he would like to go straight to outpatient PT. Pt reports he will have the support in his recovery, pt resides with brother and pt son is here for the rest of the week. No CM d/c needs identified. Date Signed: 02/22/2019 01:44 PM Electronically Signed By:RUTH Camargo
== END 2019-02-22 13:36 | disposition home or self-care (01) ==
LOC: F3N 05:34
PROVIDERS: ADMIT Orthopaedic Surgery; ATTEND Orthopaedic Surgery
PROC: 0SRD069 Replacement of Left Knee Joint with Oxidized Zirconium on Polyethylene Synthetic Substitute, Cemented, Open Approach (ICD-10-PCS; principal; 2019-02-21 07:15)
DX: M17.12 Unilateral primary osteoarthritis, left knee (principal); I44.0 Atrioventricular block, first degree; G47.33 Obstructive sleep apnea (adult) (pediatric); Z96.651 Presence of right artificial knee joint; Z98.1 Arthrodesis status; Z96.643 Presence of artificial hip joint, bilateral
CPT/HCPCS: 27447; 73560; 88311; 97110; 97116; 97161; 97165; 97535; C1713; C1776; J0171; J0690; J1100; J1885; J2270; J2704; J2795; J3010; J0330